=== PATIENT | female | born 1935 | race Caucasian/White ===

== ENCOUNTER 2016-09-26 07:59 | Day surgery (SDC) | payer OTHER, MEDICARE ==
[2016-09-25 12:44] VITALS: BMI 27.1
[2016-09-26] MEDS ORDERED: LIDOCAINE HCL 2% (20ML MULTI-DOSE VIAL) NR ONE ×2 (09:10→09:19)
[2016-09-26] MEDS ORDERED: PROPOFOL 20 ML ONE ×6 (09:10→09:20)
[2016-09-26 10:14] VITALS: TEMP 97.8
[2016-09-26 11:44] VITALS: BP 150/82; PULSE 18
--- NOTE | 2016-09-29 14:25 | PATH ---
Surgical Pathology Report Patient Name: DANIEL MAS [facility]. Rec. #: [id number] /Age/Gender: 1935 (Age: 81) / F Account: [id number] Location: [facility]-ENDOSCOPY Taken: 09/26/2016 Received: 09/26/2016 Reported: 09/29/2016 Physicians: Skinny Arellano M.D. Specimen(s) Received A: BX 2ND PORTION OF DUODENUM / /BULB B: BX ANTRUM C: BX BODY/POLYP Clinical History History of colon polyps Gastric body polyp, atrophic gastritis, diverticulosis Final Diagnosis A. DUODENUM, SECOND PORTION AND BULB, BIOPSY: DUODENAL MUCOSA WITH FOCAL FUAD'S GLANDS HYPERPLASIA. NO HISTOLOGIC EVIDENCE OF GLUTEN SENSITIVE ENTEROPATHY (CELIAC DISEASE). B. STOMACH, ANTRUM, BIOPSY: GASTRIC MUCOSA WITH MODERATE TO MARKED CHRONIC GASTRITIS. NEGATIVE FOR DYSPLASIA. IMMUNOSTAIN FOR H. PYLORI IS NEGATIVE FOR ORGANISMS. C. STOMACH, BODY/POLYP, BIOPSY: GASTRIC MUCOSA WITH FOCALLY ACTIVE MARKED CHRONIC GASTRITIS WITH INTESTINAL METAPLASIA AND ATROPHIC FEATURES. GASTRIC XANTHOMA. NEGATIVE FOR DYSPLASIA. IMMUNOSTAIN FOR H. PYLORI IS NEGATIVE FOR ORGANISMS. Comment: Immunohistochemical stain for Ae1/Ae3 performed and interpreted at [facility] on block C3 is supportive of the interpretation above. Electronically Signed Corwin Cardenas M.D. Gross Description A. Received in formalin, labeled "biopsy second portion of duodenum/bulb" are 4 nunez, irregular portions of soft tissue measuring 0.2-0.3 cm in greatest dimension. The specimens are submitted in toto in one cassette. B. Received in formalin, labeled "biopsy antrum" are 2 nunez, irregular portions of soft tissue measuring 0.2-0.3 cm in greatest dimension. The specimens are submitted in toto in one cassette. C. Received in formalin, labeled "biopsy gastric body polyp" are 2 nunez, irregular portions of soft tissue measuring 0.2 cm in greatest dimension. The specimens are submitted in toto in one cassette. [facility]/09/26/2016 [facility]/09/26/2016
== END 2016-09-26 11:10 | disposition home or self-care (01) ==
LOC: JASU-ENDO 07:59
PROVIDERS: ATTEND Internal Medicine Gastroenterology
PROC: 0DB98ZX Excision of Duodenum, Via Natural or Artificial Opening Endoscopic, Diagnostic (ICD-10-PCS; 2016-09-26)
PROC: 0DB68ZX Excision of Stomach, Via Natural or Artificial Opening Endoscopic, Diagnostic (ICD-10-PCS; 2016-09-26)
PROC: 0DJD8ZZ Inspection of Lower Intestinal Tract, Via Natural or Artificial Opening Endoscopic (ICD-10-PCS; principal; 2016-09-26 09:00)
DX: Z12.11 Encounter for screening for malignant neoplasm of colon (principal); Z86.010 Personal history of colon polyps; K57.30 Diverticulosis of large intestine without perforation or abscess without bleeding; K64.8 Other hemorrhoids; K21.9 Gastro-esophageal reflux disease without esophagitis; K31.7 Polyp of stomach and duodenum; K63.89 Other specified diseases of intestine
CPT/HCPCS: 43239; G0105; 88305-TC; 88341-TC; 88342-TC

== ENCOUNTER 2021-08-10 10:24 | Emergency (ER) | payer OTHER, MEDICARE ==
[2021-08-10 10:56] VITALS: BP 155/76; PULSE 68; TEMP 98.7; BMI 24.4
== END 2021-08-10 12:35 | disposition home or self-care (01) ==
LOC: JERFT 10:24
DX: L25.5 Unspecified contact dermatitis due to plants, except food (principal)
CPT/HCPCS: 99281-25

== ENCOUNTER 2023-01-16 04:21 | Day surgery (SDC) | payer OTHER, MEDICARE ==
[2023-01-14 13:25] VITALS: BMI 21.7
[2023-01-16 11:05] VITALS: TEMP 98.2
[2023-01-16 12:00] VITALS: BP 168/76; PULSE 58; RESP 18
== END 2023-01-16 11:50 | disposition home or self-care (01) ==
LOC: JASU-ENDO 04:21
PROVIDERS: ATTEND Internal Medicine Gastroenterology
PROC: 0DB98ZX Excision of Duodenum, Via Natural or Artificial Opening Endoscopic, Diagnostic (ICD-10-PCS; 2023-01-16)
PROC: 0DB78ZX Excision of Stomach, Pylorus, Via Natural or Artificial Opening Endoscopic, Diagnostic (ICD-10-PCS; 2023-01-16)
PROC: 0DB68ZX Excision of Stomach, Via Natural or Artificial Opening Endoscopic, Diagnostic (ICD-10-PCS; 2023-01-16)
PROC: 0DJD8ZZ Inspection of Lower Intestinal Tract, Via Natural or Artificial Opening Endoscopic (ICD-10-PCS; principal; 2023-01-16 11:00)
DX: Z12.11 Encounter for screening for malignant neoplasm of colon (principal); K29.50 Unspecified chronic gastritis without bleeding; K57.30 Diverticulosis of large intestine without perforation or abscess without bleeding; K59.89 Other specified functional intestinal disorders; Z86.010 Personal history of colon polyps
CPT/HCPCS: 43239; G0105; 88305-TC; 88342-TC